=== PATIENT | male | born 1955 | race Caucasian/White ===

== ENCOUNTER → 2020-05-18 | Outpatient (CLI) | payer MEDICARE | LOC: US 07:56 | DX: Z12.11 Encounter for screening for malignant neoplasm of colon (principal) | CPT/HCPCS: 76705 ==

== ENCOUNTER → 2020-07-05 | Day surgery (SDC) | payer MEDICARE | END | disposition home or self-care (01) | LOC: OR 08:44 | PROVIDERS: Internal Medicine Gastroenterology | PROC: 0DBP8ZX Excision of Rectum, Via Natural or Artificial Opening Endoscopic, Diagnostic (ICD-10-PCS; principal; 2020-07-05 11:15) | DX: Z12.11 Encounter for screening for malignant neoplasm of colon (principal); C20 Malignant neoplasm of rectum; M10.9 Gout, unspecified; K59.09 Other constipation; K64.1 Second degree hemorrhoids; Z20.822 Contact with and (suspected) exposure to COVID-19 | CPT/HCPCS: 88341; 88342; J7040 ==

== ENCOUNTER → 2021-10-28 | Outpatient (CLI) | payer MEDICARE, OTHER ==
[~2021-10-28] MED LIST: CYCLOBENZAPRINE10 MG PO; HYDROCODON-ACE1 EAC6 PO; PREDNISONE20 MG PO
== END ==
LOC: RAD 12:38
DX: Z53.9 Procedure and treatment not carried out, unspecified reason (principal)
CPT/HCPCS: 72110

== ENCOUNTER → 2021-10-31 | Outpatient (CLI) | payer MEDICARE, OTHER | LOC: EXRD 11:29 | DX: M48.56XA Collapsed vertebra, not elsewhere classified, lumbar region, initial encounter for fracture (principal) | CPT/HCPCS: 77080 ==

== ENCOUNTER → 2021-10-31 | Outpatient (CLI) | payer MEDICARE, OTHER | LOC: KOH-I 12:11 | DX: M54.9 Dorsalgia, unspecified (principal); S32.049A Unspecified fracture of fourth lumbar vertebra, initial encounter for closed fracture; M51.36 Other intervertebral disc degeneration, lumbar region | CPT/HCPCS: 72148 ==

== ENCOUNTER → 2021-11-06 | Day surgery (SDC) | payer MEDICARE, OTHER ==
[~2021-11-06] VITALS: Ht 188 cm; Wt 91.6 kg
[2021-11-06 09:26] LABS: HEMOGLOBIN 15.9 gm/dl (14.0-17.5); RED BLOOD COUNT 4.79 M/UL (4.20-5.50); WHITE BLOOD COUNT 9.3 K/UL (4.5-11.0)
[2021-11-06 09:46] LABS: BUN/CREATININE RATIO 22 (0-10)
== END | disposition home or self-care (01) ==
LOC: OR 08:12
PROVIDERS: Orthopaedic Surgery
DX: S32.040A Wedge compression fracture of fourth lumbar vertebra, initial encounter for closed fracture (principal); D48.0 Neoplasm of uncertain behavior of bone and articular cartilage; W85.XXXA Exposure to electric transmission lines, initial encounter; M81.0 Age-related osteoporosis without current pathological fracture; G62.9 Polyneuropathy, unspecified; Z85.038 Personal history of other malignant neoplasm of large intestine; Z92.21 Personal history of antineoplastic chemotherapy
CPT/HCPCS: 36415; 71045; 72110; 76000; 80048; 85027; 86850; 86900; 86901; 93005; J0690; J1170; J2250; J2704; J2710; J3010; Q9967